=== PATIENT | female | born 1970 | race Caucasian/White ===

== ENCOUNTER 2023-07-24 14:59 | Outpatient (AMB) | payer BC, SELFPAY ==
--- NOTE | 2023-07-24 15:39 | AM.OFFWIN_ITS ---
Intake Vital Signs 07/24/23 15:50 Height 5 ft 2 in Weight 162 lb 0.8 oz BMI 29.6 BP 118/70 Blood Pressure Location Lt brachial Position Sitting Pulse 75 Pulse Source Pulse Oximeter Temp 97.8 F Temp Source Temporal Artery Scan Pulse Oximetry (%) 96 Oxygen Delivery Method Room Air Intake Visit Reasons: EP congestion cough [id number] Intake Note: Pt is here c/o on going and congestion for five days. Patient Tobacco Use Status: Never used Tobacco Allergies amoxicillin Adverse Reaction (Intermediate, Verified 07/24/23 16:05) Rash Penicillins Adverse Reaction (Intermediate, Verified 07/24/23 16:05) rash Sulfa (Sulfonamide Antibiotics) Adverse Reaction (Intermediate, Verified 07/24/23 16:05) Rash Medication List - Last Reconciled 07/24/23 by Buzz Kc MD No Known Home Meds Do you need a note to return to daycare/school/sports/work: No HPI EP congestion cough [id number] HPI Details 52-year-old female presents to the [facility] for a sick visit. Reporting symptoms of sinus congestion, sore throat and difficulty swallowing. Low-grade fever. No family member is sick. No recent travel. Patient reports symptoms of malaise and fatigue. PFS Social History Patient Tobacco Use Status: Never used Tobacco Physical Exam Vital Signs: Last Vital Signs Temp 97.8 F 07/24/23 15:50 Pulse 75 07/24/23 15:50 BP 118/70 07/24/23 15:50 Pulse Ox 96 07/24/23 15:50 Oxygen Delivery Method Room Air 07/24/23 15:50 BMI result Body Mass Index 29.6 Const General: cooperative and healthy appearing Nutritional Appearance: well nourished Orientation/consciousness: patient oriented x3 Limitations: no limitations HEENT Head: Yes normal to inspection Eyes General: appearance normal, both eyes and all related structures Neck Neck: Yes normal visual inspection Chest Chest palpation & inspection: normal palpation of entire chest wall Resp Effort & Inspection: normal respiratory effort Neuro General: patient oriented x3 Assessment & Plan Assessment & Plan (1) Upper respiratory tract infection: Code(s): J06.9 - Acute upper respiratory infection, unspecified Plan: Antibiotics ordered. Increase fluid intake. Tylenol for aches and pains. If symptoms worsen, follow-up here for a recheck. Coding Level of Care Code Est Pt Level 3 (04464) Diagnoses Upper respiratory tract infection J06.9
[2023-07-24 15:50] VITALS: BP 118/70; PULSE 75; TEMP 36.6; O2SAT 96; BMI 29.6
== END 2023-07-24 16:54 | disposition home or self-care (01) ==
PROVIDERS: PCP Internal Medicine; Visit Provider Internal Medicine
DX: J06.9 Acute upper respiratory infection, unspecified (principal)
CPT/HCPCS: 99213

== ENCOUNTER 2024-09-27 12:02 | Outpatient (AMB) | payer BC, SELFPAY ==
--- NOTE | 2024-09-27 12:29 | MHC.OFFWIV ---
Intake Vital Signs 09/27/24 12:33 Height 5 ft 2 in Weight 160 lb BMI 29.3 BP 118/82 Blood Pressure Location Lt brachial Position Sitting Respiration 18 Pulse 76 Pulse Source Pulse Oximeter Temp 98.3 F Temp Source Oral Pulse Oximetry (%) 97 Oxygen Delivery Method Room Air Intake Visit Reasons: EP Chronic cough and [id number] Intake Note: Pt is here today for a walk in visit. Pt states that she went to Urgent Care for cough and was given antibiotic and inhaler. Pt states that she has been coughing for 5 weeks now and its not going away. Patient Tobacco Use Status: Never used Tobacco Allergies amoxicillin Adverse Reaction (Intermediate, Verified 09/27/24 12:35) Rash Penicillins Adverse Reaction (Intermediate, Verified 09/27/24 12:35) rash Sulfa (Sulfonamide Antibiotics) Adverse Reaction (Intermediate, Verified 09/27/24 12:35) Rash HPI EP Chronic cough and [id number] HPI Details Patient is a 53-year-old female with no underlying medical issues reported, including no immunosuppression issues, who comes to the walk-in clinic with complaint of 5 weeks of persistent cough. She reports that she was having a congestive cough mostly when she came to the walk-in about a week ago, and was put on a antibiotic and given albuterol inhaler for possible lower respiratory infection. She reports that the inhaler does not help much for the reactive cough, which sometimes turns into fits and causes shortness of breath, especially when lying supine. She no longer has the mucus production, and she attributes this to the antibiotic course which she completed. She denies fever, but does get chills at night. No chest pain, nausea vomiting or diarrhea, myalgias or malaise, syncope, palpitations, weakness or dizziness, sore throat, or other significant associated symptoms reported. [facility] Social History Patient Tobacco Use Status: Never used Tobacco Physical Exam Vital Signs: Last Vital Signs Temp 98.3 F 09/27/24 12:33 Pulse 76 09/27/24 12:33 Resp 18 09/27/24 12:33 BP 118/82 09/27/24 12:33 Pulse Ox 97 09/27/24 12:33 Oxygen Delivery Method Room Air 09/27/24 12:33 BMI result Body Mass Index 29.3 Const General: cooperative, healthy appearing, comfortable, no acute distress, alert, awake, Physically active and well groomed; No anxious, diaphoretic, ill appearing, intoxicated appearing, poor hygiene or tired appearing Nutritional Appearance: average body habitus Orientation/consciousness: oriented to person Limitations: no limitations Eyes General: appearance normal, both eyes and all related structures Neck Neck: Yes normal visual inspection, Yes no lymphadenopathy, Yes trachea midline, Yes supple and No anterior neck swelling Chest Chest palpation & inspection: normal palpation of entire chest wall Resp Effort & Inspection: normal respiratory effort, able to speak in complete sentences, no audible wheezes, Actively coughing (Rare dry cough), no grunting, not labored, no nasal flaring, no retractions and symmetric chest movement Auscultation: clear to auscultation bilaterally, no crackles, no rales, no rhonchi, no wheezes, lung sounds not diminished and No rub present Cardio Palpation: normal PMI Rate: regular rate Rhythm: regular rhythm Heart sounds: S1 normal heart sound present and S2 normal heart sound present Skin Other: Good color, warm and dry Neuro General: oriented to person Psych Appearance: grossly normal Mental Status: mental status grossly normal Speech and movement: Normal speech and movement present Affect: normal affect Attitude: cooperative Thought process: Normal thought process present Insight: Good insight present (Psych) Judgement: Good judgement present (Psych) Results Reviewed Results Reviewed: Some atelectasis and congestion noted, but no consolidation or obvious pneumonia visualized on two-view chest x-ray done today. Pending radiologist read. Assessment & Plan Assessment & Plan (1) Cough in adult: Code(s): R05.9 - Cough, unspecified Plan: Patient is a 53-year-old female with complaint of 5 weeks of persistent cough. She reports that she was having a congestive cough mostly when she came to the walk-in about a week ago, and was put on a antibiotic and given albuterol inhaler. She reports that the inhaler does not help much for the reactive cough, which sometimes turns into fits and causes shortness of breath, especially when lying supine. She no longer has the mucus production. She denies fever, but does get chills at night. No chest pain, nausea vomiting or diarrhea, myalgias or malaise, syncope, palpitations, weakness or dizziness, sore throat, or other significant associated symptoms reported. It seems like she had acute bronchitis, likely from respiratory virus, and this has cleared up for her however she still has a reactive cough, likely from inflammation in the bronchi. I wrote her for tapered course of prednisone, moderate dose to start, she has not taken. She can also do Tessalon Perles as needed for the cough. Two-view chest x-ray today does not show an obvious consolidation suggestive of pneumonia. She knows to follow up if symptoms persist or worsen, and to go to the emergency department with with worrisome symptoms. Orders: Orders XR chest 2V Today R05.3 - Chronic cough Medications: New prednisone then take 3 tabs for 3 days, then 2 tabs for 3 days, then 1 tab for 3 days. 40 mg (4 x 10 mg) PO DAILY 3 days 30 tabs 0RF benzonatate 200 mg PO BID-TID PRN 20 caps 0RF cough Coding Level of Care Code Est Pt Level 4 (13085) Diagnoses Cough in adult R05.9
[2024-09-27 12:33] VITALS: BP 118/82; PULSE 76; RESP 18; TEMP 36.8; O2SAT 97; BMI 29.3
--- OUTSIDE RECORDS SUMMARY | 2024-09-27 14:01 | XMS_ITS | Data Portability ---
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 Patient reports initiating a training program in June, completing several races including a [employer] Race and a 5K, and was training for the [employer] when symptoms developed. She reports being an experienced runner with history of completing 5 marathons and multiple half marathons without previous knee issues. Pain is localized to the medial aspect of the right knee. After initial onset, patient took a month off from running and participated in mobility and stretching exercises for 6 weeks. Upon attempting to return to running, pain persisted. She subsequently completed one month of physical therapy with minimal improvement despite activity modification. Patient has tried ibuprofen, rest, activity modification and physical therapy. I independently reviewed outside x-rays of the right knee dated December 2023 from [facility]. No acute fractures or dislocations. Normal medial, lateral patellofemoral joint space. Normal patellar height. She has no significant past medical history. She takes ibuprofen as needed. She has an allergy to penicillin, amoxicillin and sulfa medications. 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 No personal or family history blood clots. Past medical, surgical, family and social history; Medications, Allergies and 12-point review of systems have been reviewed, updated and charted. Physical Examination: Height and weight as listed in chart. Constitutional: Patient pleasant, well appearing and in NAD. Mental status: Patient is alert and oriented to person, place and time. No short-term memory deficits. Psychiatric: Mood and affect are appropriate. Head: Normocephalic and atraumatic. Exterior inspection of the ears and nose was unremarkable. Hearing grossly intact. Eyes: Sclera are not blue. body recall instructor II-XII are grossly intact. Full extraocular motion. Neck: Supple with age-appropriate ROM. No tracheal deviation. No obvious JVD. Respiratory: Non-labored breathing. Symmetric excursion. No audible wheezing or crackles. Peripheral Vascular: No peripheral edema. Distal pulses intact. Neurological: Peripheral motor and sensory exam normal and equal bilaterally. Skin: No rashes, lesions, wounds to the lower extremities. Normal turgor and coloration. Musculoskeletal: On examination of the right knee, there is no effusion, erythema or ecchymosis. Range of motion from 0-135? ? ?. Her knee is stable to varus and valgus stress as well as Gume and posterior drawer. She has discomfort with deep knee flexion. Tenderness to palpation along the medial joint line. Pain along the medial joint line with Chayo's maneuver. Extensor mechanism intact. No patellar instability or groin. Diagnostic Imaging: X-rays ordered, obtained and reviewed at [facility]. These images included weightbearing Santos view of both knees. No acute fractures or dislocations. Normal medial and lateral compartment joint space. Normal patellar height. 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 I discussed etiology of the patient's symptoms with her at length today. Given the chronicity of her symptoms and failure of conservative treatment, I do agree with getting an MRI of the right knee to evaluate for medial meniscus tear and associated pathology. She does already have an MRI pending, which was ordered by her PCP. I will plan to see her back in 2-3 weeks for reevaluation and MRI review. I did provide a referral for a Genutrain knee sleeve to provide compressive support to her knee and assist with activities of daily living. She may continue taking oral inflammatories as needed. All her questions and concerns were addressed. Today's visit involved examining the patient, reviewing the history, reviewing the radiographic studies, counseling the patient regarding treatment options, and the administrative tasks including placing orders, preparing patient information and home handouts and preparing the visit note. This note was generated with [facility] speech recognition city maintenance manager dictation software. Please excuse any errors that may have been overlooked during review of this note. Sometimes, these errors may affect the content or meaning of a given sentence. Please call for corrections. 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 Patient reports initiating a training program in June, completing several races including a [employer] Race and a 5K, and was training for the [employer] when symptoms developed. She reports being an experienced runner with history of completing 5 marathons and multiple half marathons without previous knee issues. Pain is localized to the medial aspect of the right knee. After initial onset, patient took a month off from running and participated in mobility and stretching exercises for 6 weeks. Upon attempting to return to running, pain persisted. She subsequently completed one month of physical therapy with minimal improvement despite activity modification. Patient has tried ibuprofen, rest, activity modification and physical therapy. I first evaluated her on 05/11/2024. Her history and exam are very consistent with a right knee medial meniscus tear and she was referred her for an MRI. She comes back today for reevaluation, MRI review and discussion of treatment options. I independently reviewed the MRI of the right knee dated 05/27/2024 from [facility]. There is a complex tear of the posterior horn medial meniscus. Mild to moderate chondral thinning to the mid weightbearing portion of the medial compartment. Superficial and deep fissuring of the lateral patellar facet also noted. Lateral meniscus intact. Cartilage of the lateral compartment intact. ACL and PCL intact. Collateral ligaments intact. Extensor mechanism intact. I reviewed previous X-rays ordered, obtained and reviewed at [facility] from April 2024. These images included weightbearing Santos view of both knees. No acute fractures or dislocations. Normal medial and lateral compartment joint space. Normal patellar height. I independently reviewed outside x-rays of the right knee dated December 2023 from [facility]. No acute fractures or dislocations. Normal medial, lateral patellofemoral joint space. Normal patellar height. She has no significant past medical history. She takes ibuprofen as needed. She has an allergy to penicillin, amoxicillin and sulfa medications. 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 No personal or family history blood clots. Past medical, surgical, family and social history; Medications, Allergies and 12-point review of systems have been reviewed, updated and charted. Physical Examination: Height and weight as listed in chart. Constitutional: Patient pleasant, well appearing and in NAD. Mental status: Patient is alert and oriented to person, place and time. No short-term memory deficits. Psychiatric: Mood and affect are appropriate. Head: Normocephalic and atraumatic. Exterior inspection of the ears and nose was unremarkable. Hearing grossly intact. Eyes: Sclera are not blue. body recall instructor II-XII are grossly intact. Full extraocular motion. Neck: Supple with age-appropriate ROM. No tracheal deviation. No obvious JVD. Respiratory: Non-labored breathing. Symmetric excursion. No audible wheezing or crackles on auscultation. Cardiovascular: Regular rate and rhythm and normal S1 and S2. Skin: No rashes, lesions, wounds to the lower extremities. Normal turgor and coloration. Musculoskeletal: On examination of the right knee, there is no effusion, erythema or ecchymosis. Range of motion from 0-135? ? ?. Her knee is stable to varus and valgus stress as well as Gume and posterior drawer. She has discomfort with deep knee flexion. Tenderness to palpation along the medial joint line. Pain along the medial joint line with Chayo's maneuver. Extensor mechanism intact. No patellar instability or groin. 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 I discussed etiology of the patient's symptoms with her at length today. I discussed options with her today both operative and nonoperative. At this point, she has failed conservative treatment including rest, activity modification, oral anti-inflammatori es and physical therapy. Therefore, I recommend moving forward with right knee diagnostic and operative arthroscopy with partial medial meniscectomy and chondroplasty/kate ridement. Anticipated recovery after surgery is approximately 6 weeks. I will allow the patient to weight-bear as tolerated. I recommend the patient begin physical therapy within 2 days of surgery to prevent knee stiffness. The patient does wish to proceed. Preoperative history and physical completed. All questions and concerns addressed. 1. A detailed discussion regarding the patient? s pathoanatomy and treatment options, both operative and non-operative, was conducted today. 2. Given that conservative measures have failed, I recommended right knee diagnostic and operative arthroscopy with partial medial meniscectomy and chondroplasty/kate ridement. 2. The mechanics of the major surgery were reviewed with explanation, diagram, and review of imaging. 3. I told the patient that the goal of surgery was to improve their overall function and symptoms, but that surgery may not relieve all symptoms. I advised the patient that symptom resolution after this procedure may be protracted and incomplete.? ? ? I explained that, as a result, permanent functional limitations may be recommended. 4. An appropriate timeline of recovery was outlined, and appropriate expectations were reviewed. 5. The risks and benefits of surgery, and the nonoperative alternatives, were discussed at length. Risks include, but are not limited to infection, bleeding, damage to nerves, blood vessels, muscle, tendon, bone; need for further surgery, wound healing problems, hardware related problems, non-relief of symptoms, recurrence of pathology, reinjury, chronic pain, chronic numbness, chronic weakness, loss of function, compartment syndrome, fracture, complex regional pain syndrome, joint stiffness, adhesions/scarrin g, arthritis or progression of arthritis, complications of anesthesia, and blood clots. 6. The patient has been educated in clear, simple language and on their own level of understanding the risks and benefits of all viable treatment options, including those of no treatment. All questions have been answered to their satisfaction. The patient has made an informed decision to proceed with surgery. 7. The patient was offered a second opinion regarding diagnosis and management of their condition and they respectfully declined. The patient was referred for a semi-rigid/rigid orthosis. The patient has weakness and instability of their extremity which requires stabilization for this semi-rigid/rigid orthosis to improve their function. Verbal and written instructions for the use and application of this item were given. Patient was instructed that should the brace result in increased pain, decreased sensation, increased swelling or an overall worsening of their medical condition, to please contact our office immediately. Today's visit involved examining the patient, reviewing the history, reviewing the radiographic studies, counseling the patient regarding treatment options, and the administrative tasks including placing orders, preparing patient information and home handouts and preparing the visit note. This note was generated with [facility] speech recognition city maintenance manager dictation software. Please excuse any errors that may have been overlooked during review of this note. Sometimes, these errors may affect the content or meaning of a given sentence. Please call for corrections. [email or web address] Not available 06/07/2024 14:14:12 Plan of Treatment Reminders Order Date Submit Date Provider Last Modified By Organization Details Last Modified Time Details Appointments None recorded. Lab None recorded. Referral physical therapist referral - PHYSICAL THERAPY REFERRAL ICD-10: M24.661(rig ht) 1. Follow post-operat saulo protocol.2. Soft tissue modalities as indicated3. Home exercise program.All ow 2-3 visits a week for 6 weeks with home exercise program.Com pleted by: 2023 024 [email or web address] Not available 4 12:10:36 Procedures None recorded. Surgeries None recorded. Imaging XR, knee, 1 or 2 view - rm 217 rt knee santos only 2023 024 [email or web address] 4 [facility], [address], [place], [address], 4 10:56:16 Medication Orders None recorded. Patient TargetsNo targets recorded. Patient InstructionsNo instructions recorded. Reason for Referral Physical Therapist Referral for Tear of medial meniscus of knee PHYSICAL THERAPY REFERRAL ICD-10: M24.661(right) 1. Follow post-operative protocol.2. Soft tissue modalities as indicated3. Home exercise program.Allow 2-3 visits a week for 6 weeks with home exercise program.Completed by: Referring Physician: Aakash Raphael, Orthopedic Surgery, Encounter Date: 06/07/2024 Results Created Date Observation Date Name Description Value Unit Range Abnormal Flag Note LastModifiedBy Organization Detail LastModifiedTime 05/21/20 24 05/21/2024 XR, knee, 1 or 2 view [email or web address] ?Encry pted=s hAaTro YD8dLq bEUv6g %2BXZw aYqtaq 0bqfl% 2Fg9IQ a4ajBk vP9nXo QUaueC m3YtLR FvZlgJ JJ8mAn HZtai3 6b5915 AC0Kqa XmCVKW hKiQtr MwF INTERFACE [facility] [address], [place], [address], 05/21/2024 09:50:12 05/21/20 24 05/21/2024 XR, knee, 1 or 2 view [email or web address] ?Encry pted=s hAaTro YD8dLq bEUv6g %2BXZw aYqtaq 0bqfl% 2Fg9IQ a4ajBk vP9nXo QUaueC m3YtLR FvZlgJ JJ8mAn HZtai3 6z0982 AC0Kqa XmCVKW hKiQtr MwF INTERFACE [facility] [address], [place], [address], 05/21/2024 09:50:14 06/10/20 24 05/27/2024 MRI, knee, w/o contr ast No observ ation record ed. BARCODE Not Available 2023 09:07:34 Result Notes None recorded. Procedures Surgical History None recorded. Imaging Results Imaging Date Name Status LastModified by Organiz ation Details LastModified Time 05/21/2024 XR, knee, 1 or 2 view completed INTERFACE [facility] [email or web address], [place], [address], 05/21/2024 09:50:12 05/21/2024 XR, knee, 1 or 2 view completed INTERFACE [facility] [email or web address], [place], [address], 05/21/2024 09:50:14 05/27/2024 MRI, knee, w/o contrast completed BARCODE Information not available 06/10/2024 09:07:34 Procedure Notes None recorded. Medical Equipment None Reported. Allergies Allergen ID Allergen Name Allergen Category Reaction Reaction Severity Criticality Documentation Date Start Date Code Code System Note Provider Name and Address Organization Details Recorded Time 572628 Product containin g penicilli n (product) medicatio n Not available Not available Not available 05/21/2024 13259 8001 SNOMED SIENNA SOTO [facility] 4 09:34:01 065810 amoxicill in medicatio n Not available Not available Not available 05/21/2024 723 RxNorm SIENNA SOTO [facility] 4 09:34:07 157406 Substance with sulfonami de structure and antibacte rial mechanism of action (substanc e) medicatio n Not available Not available Not available 05/21/2024 59400 8003 SNOMED SIENNA SOTO [facility] 4 09:34:13 Medications Name Sig Start Date Stop Date Status Note LastModified by Organization Details LastModified Time azithromyci n 250 mg tablet 08/06 completed Not Available Not Available Not Available meloxicam 15 mg tablet TAKE 1 TABLET BY MOUTH EVERY DAY active Not Available Not Available No t Available ondansetron HCl 4 mg tablet TAKE 1 TABLET BY MOUTH EVERY 6 TO 8 HOURS NEEDED FOR NAUSEA 08/06 completed Not Available Not Available Not Available aspirin 325 mg tablet,raul yed release TAKE 1 TABLET BY MOUTH EVERY DAY BEGINNING THE DAY AFTER SURGERY active Not Available Not Available No t Available naproxen 500 mg tablet TAKE 1 TABLET BY MOUTH TWICE DAILY WITH FOOD FOR 5 DAYS 08/06 completed Not Available Not Available Not Available oxycodone 5 mg tablet TAKE 1 TABLET BY MOUTH EVERY 4 TO 6 HOURS NEEDED FOR MODERATE TO SEVERE PAIN active Not Available Not Available No t Available Vitals Date Recorded Body height Body mass index (BMI) Body weight Provider Name and Address Organization Details Last Updated DateTime 05/21/2024 157.48 cm 28.3 kg/m2 08028.82 maeve SOTO [facility] 05/21/2024 09:33:42 Date Recorded Body height Body mass index (BMI) Body weight Heart rate Body temperature Oxygen saturation Oxygen saturation in Arterial blood by Pulse oximetry Respiratory rate Systolic blood pressure Diastolic blood pressure Provider Name and Address Organization Details Last Updated DateTime 157.48 cm 28.3 kg/m2 42053.8 2 g 78 /min 97.9 [degF] 98 % 98 % 18 /min 118 mm[Hg] 70 mm[Hg] SIENNA SOTO [facility] 11:35:23 Date Recorded Body height Body mass index (BMI) Body weight Provider Name and Address Organization Details Last Updated DateTime 08/06/2024 157.48 cm 28.3 kg/m2 88641.82 g jazmyn beauchamp [facility] 08/06/2024 10:52:10 Social History None recorded. Functional Status None recorded. Mental Status None recorded. Family History Nothing Reported. Medical History No medical history recorded. Gynecological HistoryNo gynecological history recorded. Obstetrics History GPAL:G 0 P 0 0 0 0 Past Encounters Encounter ID Performer Location Encounter Start Date Encounter Closed Date Diagnosis/Indication Diagnosis SNOMED-CT Code Diagnosis ICD10 Code Diagnosis Note [id number] Aakash Raphael MD [facility] 2nd floor [address] [facility] [place] [address] 05/21/2024 09:04:13 06/18/2024 10:21:57 Pain of right knee joint 1082914984 10404 M25.561 Strain of knee 724757527 1 03 S86.911A [id number] MD [facility] [address] [place] [address] 06/07/2024 10:22:17 07/01/2024 14:47:49 Tear of medial meniscus of knee 634531562 S83.241D Chondromal acia of right patella 8780924707 5951201 M22.41 [id number] LIBAN Bassett - [facility] [address] [place] [address] 08/06/2024 10:40:36 08/20/2024 13:45:59 Postoperative visit 235873074 Z48.89 Acute meni scal tear, medial 961362560 S83.231D Osteoarthr itis of right knee joint 2512518246 83497 M17.11 Health Concerns Section Related Observation LastModified by Organization Detai ls LastModified Time None Recorded Concern Status LastModified by Organization Details LastModified Time None Recorded Advance Directives Directive None Recorded Payers Encounter Date Sequence Insurance Name Policy Number Policy [employer] Covered Member ID [employer] Member ID Guarantor Name 05/21/2024 1 [place] [employer] [place] [employer] [place] Yoana Ranjana [id number] [place] Ranjana 06/07/2024 1 [place] [employer] [place] [place] Yoana Ranjana [id number] [employer]l 08/06/2024 1 [place] [employer] [place] [place] Yoana Ranjana [id number] [employer] Notes Date Note Type Note Provider Name and Address Organization Details Recorded Time 08/06/2024 text/html I am seeing the patient today under the supervision of Dr. Payan who was available but who did not see the patient. HPI: Patient presents to the office today approximately 2 weeks status post {{right* left}} knee arthroscopy with partial {{medial* lateral med ial and lateral}} meniscectomy and chondroplasty. Pain has been controlled. Denies any issues with the incision sites. No calf pain, neurovascular changes, or systemic complaints. PMH/PSH/MEDS/ALL/FMH/ SOC HX/ROS are reviewed in detail per my medical intake sheet. General Exam: Vital signs are as noted below Mental status: Alert and lucid. Normal insight, affect and grooming. 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 No spasticity or clonus noted. EXAMINATION: The patient is well appearing and in no apparent distress. Alert and oriented x3. Gait is mildly antalgic. {{Right* Left}} knee reveals well-healing surgical scars and expected postoperative edema. No erythema, ecchymosis, or drainage. Neurovascularly intact. No significant joint line tenderness. ROM is from 0-125 degrees. Stability intact with anterior, posterior, and varus/valgus stress at both 0 and 30 degrees of flexion. 5/5 strength. Calf/leg compartments soft and compressible. Intraoperative photos have been reviewed. IMPRESSION: 2 weeks status post {{right* left}} knee arthroscopy with partial {{medial* lateral med ial and lateral}} meniscectomy and chondroplasty PLAN: Intraoperative findings have been reviewed with the patient. The patient is recovering well from surgery. Pain has been controlled. We reviewed the signs/symptoms of infection. May slowly increase activity level as tolerated. Advised against high impact activities for the first six weeks post-op. All questions have been answered. Laura De La Vega PA-C [address] [facility], [place], [address], [facility] 08/06/2024 14:59:39 OBGyn Episode No OBEpisode recorded.
== END 2024-09-27 14:48 | disposition home or self-care (01) ==
PROVIDERS: PCP Internal Medicine; Visit Provider Physician Assistant Medical
DX: R05.9 Cough, unspecified (principal)

== ENCOUNTER 2024-09-27 12:02 | Outpatient (REF) | payer BC, SELFPAY ==
--- NOTE | ~2024-09-27 | XR_ITS ---
EXAMINATION: XR CHEST 2 VIEWS HISTORY: R05.3 - Chronic cough COMPARISON: There are no prior studies for comparison. FINDINGS: PA and lateral views of the chest are submitted. The lungs are expanded and clear. There is no pleural effusion, pneumothorax, or pulmonary vascular congestion. The heart is normal in size. The bones are intact. XR/XR chest 2V IMPRESSION: Normal examination of the chest. Electronically signed by: Omid Rothman MD 09/27/2024 01:39 PM EDT
--- OUTSIDE RECORDS SUMMARY | 2024-09-27 15:09 | XMS_ITS | Data Portability ---
Author Organization [facility], Main Office Address [address] [facility] [address] [place] [address] Care Team Providers Care Rn Child Name Role Phone [facility] Mental Health Practitioner [phone] MALINA KUMAR Primary Care Provider JONATHON GUTHRIE [facility] Carpet Installer Helper Assessment Encounter Date Assessment Date Assessment LastModified by Organization Details LastModified Time 12/22/2023 12/22/2023 Discussed with patient the signs/symptom s warranted for a return to office visit and/or an ER visit. Patient understood and agreed with the plan. [email or web address] Not available 12/22/2023 11:08:45 Plan of Treatment Reminders Order Date Submit Date Provider Last Modified By Organization Details Last Modified Time Details Appointments None record ed. Lab lipid panel, serum or plasma 2023 RITO [facility] (Centralized Electronic Ordering - All Locations), Patient Can Go To The Location Of Their Choice, 10:50:40 CMP, serum or plasma 2023 024 [email or web address] [facility] (Centralized Electronic Ordering - All Locations), Patient Can Go To The Location Of Their Choice, 11:14:44 CBC w/ auto diff 2023 RITO [facility] (Centralized Electronic Ordering - All Locations), Patient Can Go To The Location Of Their Choice, 10:50:40 vitami n D, 25-hyd gomez, total, serum 2023 024 RITO [facility] (Centralized Electronic Ordering - All Locations), Patient Can Go To The Location Of Their Choice, [id number] 4 10:50:44 TSH, serum or plasma 2022 023 RITO [facility] (Centralized Electronic Ordering - All Locations), Patient Can Go To The Location Of Their Choice, [id number] 3 16:23:51 lipid panel, serum 2022 023 RITO [facility] (Centralized Electronic Ordering - All Locations), Patient Can Go To The Location Of Their Choice, [id number] 3 16:20:15 CMP, serum or plasma 2022 023 RITO [facility] (Centralized Electronic Ordering - All Locations), Patient Can Go To The Location Of Their Choice, [id number] 3 16:20:13 CBC w/ auto diff 2022 023 [email or web address] [facility] (Centralized Electronic Ordering - All Locations), Patient Can Go To The Location Of Their Choice, [id number] 4 16:15:31 Referral gyneco logist referr al 2023 024 [email or web address] Not available 4 11:03:42 nutrit ionist /dieti rocael referr al 2023 024 [email or web address] Not available 4 11:03:42 orthop edic surgeo n referr virginie - R. knee injury . 2023 024 thony [facility], [address], [place], [address], 4 10:02:29 physic al therap ist referr al - right knee pain-p t is an avid runner , has knee pain w ambula tion/w eight bearin g on latera l and medial aspect s; possib le IT band strain 2023 024 thony [facility] [address] [facility] [address], [place], [address], 4 13:02:44 gyneco logist referr al 2022 023 [email or web address] Not available 4 17:17:02 pulmon ologis t referr al - EXerci se intole mary with dyspne a. Chest xray and labs normal . 2022 023 thony [facility], [address] [place] [address], [address], 3 16:41:20 Procedures None record ed. Surgeries None record ed. Imaging MAMMO, screen ing, bilate ral 2023 024 [facility] (Ultrasound), [address] [place], [address], 5 09:53:56 MRI, knee, w/o contra st - Knee injury 5-6 months ago with persis tent medial knee pain. R/o menisc al tear. 2023 024 [facility] (Radiology), [address] [place], [address], 4 11:46:23 XR, knee, 3 view - right knee pain 2023 024 [email or web address] [facility], [address] [place] [address], [address], 4 20:00:13 exerci se stress test - Abnorm al EKG, shortn ess of breath with exerti on 2022 023 [email or web address] [facility], [address] [place] [address], [address], 3 14:48:09 electr ocardi ogram 2022 023 [email or web address] In-Office Order, Internal Use Only DO Not Attach Compendium DO Not Attach Compendium, Do Not Delete/merge, [id number] 10:05:55 XR, chest, 2 view - Dyspne a with exerti on 2022 023 [facility] (Ultrasound), [address], [place], [address], 10:42:05 Medication Orders None record ed. Patient TargetsNo targets recorded. Patient Instructions Encounter Date Encounter Id Patient Instructions Last Modified By Organization Details Last Modified Time 12/21/2022 [id number] hot flashes duri ng menopause: care instructions Not available 12/21/2022 09:42:47 heart-healthy diet: care instructions Not available 12/21/2022 09:42:47 high cholesterol : care instructions Not available 12/21/2022 09:42:47 mediterranean diet Not availab le 12/21/2022 09:42:47 When You Want to Lose Weight: Care Instructions Not available 12/21/2022 09:50:32 complete PFT w/ post bronchodilator spirometry* - exertional dyspnea, nonsmoker, r/o COPD. Not available 01/13/2023 11:18:51 06/05/2024 [id number] irritable bowel syndrome: care instructions Not available 06/05/2024 10:42:09 allergies: care instructions Not available 06/05/2024 10:42:08 high cholesterol : care instructions Not available 06/05/2024 10:42:09 learning about breast cancer screening Not available 06/05/2024 10:42:08 When You Want to Lose Weight: Care Instructions Not available 06/05/2024 10:40:37 Reason for Referral Land Economist Referral for Sc reening for malignant neoplasm of cervix Referring Physician: Malina Kumar, Internal Medicine, Encounter Date: 12/21/2022 Hatchery Helper Referral for D yspnea EXercise intolerance with dyspnea. Chest xray and labs normal. Referring Physician: Malina Kumar, Internal Medicine, Encounter Date: 12/21/2022 Physical Therapist Referral for Pain of right knee region right knee pain-pt is an avid runner, has knee pain w ambulation/weight bearing on lateral and medial aspects; possible IT band strain Referring Physician: Mary Fang, Family Medicine, Encounter Date: 12/22/2023 Orthopedic Surgeon Referral for Pain of right knee region R. knee injury. Referring Physician: Malina Kumar, Internal Medicine, Encounter Date: 04/30/2024 Mounter [employer]col[employer]/dietitian Refer ral for Body mass index 25-29 - overweight Referring Physician: Malina Kumar, Internal Medicine, Encounter Date: 06/05/2024 Land Economist Referral for Sc reening for malignant neoplasm of cervix Referring Physician: Malina Kumar, Internal Medicine, Encounter Date: 06/05/2024 Results Created Date Observation Date Name Description Value Unit Range Abnormal Flag Note LastModifiedBy Organization Detail LastModifiedTime 12/08/1912/07/2022 COMPR EHENS CORTES METAB OLIC PANL glucose 89 mg/dL (70-99 ) Not Available [facility] (Centralized Electronic Ordering - All Locations) Patient Can Go To The Location Of Their Choice, 12/07/2022 16:20:13 12/08/1912/07/2022 COMPR EHENS CORTES METAB OLIC PANL BUN 14 mg/dL (6-20) Not Available [facility] (Centralized Electronic Ordering - All Locations) Patient Can Go To The Location Of Their Choice, 12/07/2022 16:20:13 12/08/1912/07/2022 COMPR EHENS CORTES METAB OLIC PANL creatinine 0.8 mg/dL (0.5-1 .0) Not Available [facility] (Centralized Electronic Ordering - All Locations) Patient Can Go To The Location Of Their Choice, 12/07/2022 16:20:13 12/08/1912/07/2022 COMPR EHENS CORTES METAB OLIC PANL sodium 135 mmol/ L (133-1 45) Not Available [facility] (Centralized Electronic Ordering - All Locations) Patient Can Go To The Location Of Their Choice, 12/07/2022 16:20:12/08/1912/07/2022 COMPR EHENS CORTES METAB OLIC PANL potassium 4.2 mmol/ L (3.6-5 .2) Not Available [facility] (Centralized Electronic Ordering - All Locations) Patient Can Go To The Location Of Their Choice, 12/07/2022 16:20:12/08/19 23 12/07/2022 COMPR EHENS CORTES METAB OLIC PANL chloride 98 mmol/ L (98-10 7) Not Available [facility] (Centralized Electronic Ordering - All Locations) Patient Can Go To The Location Of Their Choice, 12/07/2022 16:20:12/08/1912/07/2022 COMPR EHENS CORTES METAB OLIC PANL bicarbonate 24 mmol/ L (22-29 ) Not Available [facility] (Centralized Electronic Ordering - All Locations) Patient Can Go To The Location Of Their Choice, 12/07/2022 16:20:12/08/1912/07/2022 COMPR EHENS CORTES METAB OLIC PANL anion gap 13 (4-17) Not Available [facility] (Centralized Electronic Ordering - All Locations) Patient Can Go To The Location Of Their Choice, 12/07/2022 16:20:12/08/1912/07/2022 COMPR EHENS CORTES METAB OLIC PANL albumin 4.7 gm/dL (3.4-4 .8) Not Available [facility] (Centralized Electronic Ordering - All Locations) Patient Can Go To The Location Of Their Choice, 12/07/2022 16:20:12/08/1912/07/2022 COMPR EHENS CORTES METAB OLIC PANL calcium 10.2 mg/dL (8.6-1 0.5) Not Available [facility] (Centralized Electronic Ordering - All Locations) Patient Can Go To The Location Of Their Choice, 12/07/2022 16:20:12/08/1912/07/2022 COMPR EHENS CORTES METAB OLIC PANL bilirubin,to efren 0.4 mg/dL (0-1.2 ) Not Available [facility] (Centralized Electronic Ordering - All Locations) Patient Can Go To The Location Of Their Choice, 12/07/2022 16:20:13 12/08/19 23 12/07/2022 COMPR EHENS CORTES METAB OLIC PANL total protein 7.6 gm/dL (6.2-8 .2) Not Available [facility] (Centralized Electronic Ordering - All Locations) Patient Can Go To The Location Of Their Choice, 12/07/2022 16:20:13 12/08/19 23 12/07/2022 COMPR EHENS CORTES METAB OLIC PANL Ag ratio 1.6 Not Available [facility] (Centralized Electronic Ordering - All Locations) Patient Can Go To The Location Of Their Choice, 12/07/2022 16:20:13 12/08/19 23 12/07/2022 COMPR EHENS CORTES METAB OLIC PANL AST 26 U/L (0-32) Not Available [facility] (Centralized Electronic Ordering - All Locations) Patient Can Go To The Location Of Their Choice, 12/07/2022 16:20:13 12/08/19 23 12/07/2022 COMPR EHENS CORTES METAB OLIC PANL alk phos 102 U/L (35-10 4) Not Available [facility] (Centralized Electronic Ordering - All Locations) Patient Can Go To The Location Of Their Choice, 12/07/2022 16:20:13 12/08/19 23 12/07/2022 COMPR EHENS CORTES METAB OLIC PANL ALT 17 U/L (0-33) Not Available [facility] (Centralized Electronic Ordering - All Locations) Patient Can Go To The Location Of Their Choice, 12/07/2022 16:20:13 12/08/19 23 12/07/2022 COMPR EHENS CORTES METAB OLIC PANL estimated GFR creatinine 85 mL/mi n/1.7 3_M2 Creat inine based estim ated glome rular filtr ation (eGFR ) in adult s is calcu lated using the Natio nal Kidne y Found ation recom nick d 2020 CKD-E PI equat ion. Estim ates GFR from serum creat inine , age and sex. Not Available [facility] (Centralized Electronic Ordering - All Locations) Patient Can Go To The Location Of Their Choice, 12/07/2022 16:20:13 12/08/1912/07/2022 LIPID PANEL cholesterol, total 284 mg/dL (<200) high Not Available [facility] (Central[facility] Ordering - All Locations) Patient Can Go To The Location Of Their Choice, 12/07/2022 16:20:15 12/08/1912/07/2022 LIPID PANEL triglyceride 164 mg/dL (<150) high Not Available [facility] (Central[facility] Ordering - All Locations) Patient Can Go To The Location Of Their Choice, 12/07/2022 16:20:15 12/08/1912/07/2022 LIPID PANEL HDL chol 85 mg/dL (>39) Not Available [facility] (Centralized Electronic Ordering - All Locations) Patient Can Go To The Location Of Their Choice, 12/07/2022 16:20:15 12/08/1912/07/2022 LIPID PANEL LDL cholesterol, calculated 166 mg/dL (0-130 ) high Not Available [facility] (Centralized Electronic Ordering - All Locations) Patient Can Go To The Location Of Their Choice, 12/07/2022 16:20:15 12/08/1912/07/2022 LIPID PANEL non HDL cholesterol (calc) 199 mg/dL (<160) high Not Available [facility] (Centralized Electronic Ordering - All Locations) Patient Can Go To The Location Of Their Choice, 12/07/2022 16:20:15 12/08/1912/07/2022 TSH WITH REFLE X TO FT4 TSH 1.67 uIU/m L (0.4-4 .2) Not Available [facility] (Centralized Electronic Ordering - All Locations) Patient Can Go To The Location Of Their Choice, 12/07/2022 16:23:51 12/09/1912/07/2022 XR, chest , 2 view No observ ation record ed. [facility] [place] [address] [address], [place], [address], 12/08/2022 18:31:27 12/09/1912/07/2022 XR, chest , 2 view No observ ation record ed. [facility] (Ultrasound) [address], [place], [address], 12/09/2022 11:41:05 12/22/19 23 12/21/2022 elect rocbreonna diogr am No observ ation record ed. [email or web address] In-Office Order Internal Use Only DO Not Attach Compendium DO Not Attach Compendium, Do Not Delete/merge, [id number] 12/21/2022 13:03:59 12/22/19 elect rocbreonna diogr am No observ ation record ed. In-Office Order Internal Use Only DO Not Attach Compendium DO Not Attach Compendium, Do Not Delete/merge, [id number] 12/21/2022 10:20:53 03/01/20 23 02/28/2023 exerc ise stres s test No observ ation record ed. RITO Not Available 2022 11:49:24 01/02/20 24 01/02/2024 XR, knee, 1 or 2 view Right knee 2 views dated January 02, 2024. No prior studie s are availa ble. HISTOR Y: Pain. FINDIN GS: This examin ation shows no eviden ce of fractu re or disloc ation. Joint spaces are well preser rosemary. There is some minima l pointi ng of the tibial spines . No joint effusi on is demons trated . IMPRES JOY: No eviden ce of acute osseou s abnorm ality. Examin ation [id number]. Thank you for allowi ng me to partic ipate in the care of this patien t. WSN: [id number] Orderi ng Physic patrice: Mary Fang Dictat ed By: Nick Kumar MD Dictat ed Date/T scar: 3:10 pm Review ed By: Nick Kumar MD Signed By: Nick Kumar MD Signed Date/T scar: 3:10 pm Transc ribed By: JANNETTE Transc ribed Date/T scar: 3:10 pm Patien t Class: Outpat ient [facility] (Outpt Imaging) [address] , [place], [address], 01/03/2024 09:48:18 01/02/20 24 01/02/2024 XR, knee, 3 view No observ ation record ed. [email or web address] [facility] [address], [place], [address], 01/02/2024 19:58:48 05/27/20 24 05/27/2024 MRI, knee, w/o contr ast No observ ation record ed. [facility] [address] [place], [address], 05/27/2024 11:51:59 05/27/20 24 05/26/2024 MRI joint ext lower w/o contr ast right Histor y: Right knee pain. Techni que: MRI of the right knee was perfor med withou t intrav enous contra st. Compar regi: 4 Findin gs: Joint effusi on: No joint effusi on is presen t. Hoffa' s fat pad is unrema rkable . Menisc i: Comple x degene rative tear platform power technician ior horn of the medial menisc us with radial compon ent. Latera l menisc us appear s intact . Tendon s and ligame nts: The ACL and PCL are intact . The collat eral ligame nts are unrema rkable . The ilioti bial band is unrema rkable . The extens or mechan ism is normal . Bone and articu lar cartil age: Overal l bone marrow signal is within normal limits . No fractu re. No signif icant hypert rophic change s. Latera l tibiof emoral cartil age appear s intact . Mild to modera te chondr al thinni ng medial tibiof emoral compar tment. Areas of superf icial and deep fissur ing involv ing the latera l patell ar facet. Impres joy: 1. Comple x tear platform power technician ior horn of the medial menisc us. 2. Mild degene rative change s in the patell ofemor al and medial tibiof emoral compar tment. WSN: [id number] Orderi ng Physic patrice: Jerry Kumar Dictat ed By: Ena muniz MD, Antonio Browning Dictat ed Date/T scar: 11:18 a Review ed By: Antonio Stein MD Signed By: Antonio [place] MD Signed /T scar: 11:18 am Transc ribed By: JANNETTE Transc ribed /T scar: 11:13 am Patioj t Class: [facility]pat [facility] [address], [place], [address], 05/27/2024 17:03:25 08/06/19 25 08/06/2024 MAMMO , scree tari, digit al, bilat eral PROCED URE: MM Digita l Mammo Screen ing INDICA TION: Screen ing for breast cancer . No known palpab le abnorm alitie s. COMPAR REGI: Multip le priors TECHNI QUE: Full-f ield digita l CC and MLO 3D tomosy nthesi s images of both breast s were acquir ed. Comput er-aid ed detect ion (CAD) was utiliz ed in the interp retati on of this study. DENSIT Y: There are scatte red areas of fibrog landul ar densit y. FINDIN GS: No suspic ious masses , suspic ious microc alcifi cation s, or areas of flavia ectura l distor tion are seen in either breast to sugges t malign kilo. IMPRES JOY: No mammog raphic eviden ce of malign kilo. RECOMM ENDATI ON: Routin e mammog raphic screen ing BI-RAD S: 1 (Negat cortes) Lay letter mailed to celia watson WSN: [id number] Orderi ng Physic patrice: Jerry Kumar Dictat ed By: Ilene Turpin MD, V Dictat ed Date/T scar: 9:48 am Review ed By: Ilene Turpin MD, V Signed By: Ilene Turpin MD, V Signed /T scar: 9:48 am Transc ribed By: JANNETTE Transc riptio n /T scar: 9:46 am Birads : Patien t Class: Outpat ient [email or web address] [facility] (Outpt Imaging) [address], [place], [address], 08/06/2024 09:56:15 08/06/19 25 08/06/2024 MAMMO , julissae tari, bilat dalel No observ ation record ed. [email or web address] [facility] [address], [place], [address], 08/06/2024 09:56:26 Result Notes None recorded. Problems Name Problem SNOMED Code Status Onset Date Resolution Date Notes Provider Name and Address Organization Details Recorded Time Allergic rhinitis 57523475 Completed 201201/14/2014 RECORDED 04/29/20 13 11:10AM BY SANDRINE KEY MA, JASMIN ON/ADDEN DUM Not Available [facility] 4 15:09:02 Screenin g for malignan t neoplasm of breast Completed 09/09/2014 Chaparro thayer [facility] 5 09:48:28 Screenin g for malignan t neoplasm of breast Completed 201201/14/2014 RECORDED 04/29/20 13 11:09AM BY SANDRINE KYE MA, JASMIN ON/ADDEN DUM Not Available [facility] 4 15:09:02 Disorder of lower limb 355022471 Completed 201201/14/2014 IMPRESSI ON: LEFT THIGH WITH ABCESS, SON WITH A HX OF 2 PUSTULES ON CHIN BUT PLAYS HOCKEY AND WEARS A MASK, NO HX OF MRSA IN THE HOUSE, ALLERGIC TO PCN THEREFOR E WILL AVOID KEFLEX, CUTURED TO LOOK FOR MRSA TODAY, SEND TO SURGEON FOR I AND D AND FOLLOW UP NEXT WEEK, IF MRSA CHECK SENSITIV ITIES AND CONSIDER BACTRIM; RECORDED 04/29/20 13 11:10AM BY SANDRINE KEY MA, FAISALATI ON/ADDEN DUM Not Available [facility] 4 15:09:02 Cellulit is and abscess of finger 604928209 Completed 09/09/2014 Chaparro thayer [place] [facility] 5 09:48:28 Screenin g for malignan t neoplasm of cervix Completed 09/09/2014 Chaparro thayer, [facility] 5 09:48:28 Diarrhea of presumed infectio us origin 64713946 Completed 200801/14/2014 RECORDED 08/22/19 09 9:33AM BY CONNOR RODRÍGUEZ, ANNOTATI ON/ADDEN DUM Not Available [facility] 4 15:09:02 Influenz a vaccine needed 53030493278 06 Completed 201201/14/2014 RECORDED 07/12/19 13 3:32PM BY AN BOLANOS MA, NURSE VISIT Not Available [facility] 4 15:09:02 Adult health examinat ion Completed 201301/14/2014 RECORDED 10/26/19 14 11:31AM BY SANDRINE KEY MA, ANNOTRONALD ON/ADDEN DUM Not Available [facility] 4 15:09:02 Hyperlip idemia 28285559 Active Costa Miller [facility] [address] [address], [place], [address] , [facility] 5 18:13:13 Irritabl e bowel syndrome 73847879 Active Costa Miller [facility] [address] [address], [place], [address] , [facility] 5 18:13:13 Hip pain 70304989 Completed 201301/14/2014 RECORDED 10/26/19 14 11:32AM BY SANDRINE KEY MA, ANNOTATI ON/ADDEN DUM Not Available [facility] 4 15:09:02 Localize d superfic ial swelling of skin 635285217 Completed 201201/14/2014 RECORDED 04/29/20 13 11:09AM BY SANDRINE KEY MA, ANNOTATI ON/ADDEN DUM Not Available [facility] 4 15:09:02 Menopaus al symptom 23025471 Completed 201301/14/2014 STORY: JERRI DOES STAFF PHARMACIST CARE.; RECORDED 10/26/19 14 11:32AM BY SANDRINE KEY MA, ANNOTATI ON/ADDEN DUM Not Available [facility] 4 15:09:02 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 Completed 201201/14/2014 RECORDED 04/29/20 13 11:09AM BY SANDRINE KEY MA, ANNOTATI ON/ADDEN DUM Not Available [facility] 4 15:09:02 Administ ration of bacteria l and viral vaccine Completed 200801/14/2014 RECORDED 08/22/19 09 9:41AM BY CONNOR RODRÍGUEZ, OFFICE VISIT Not Available [facility] 4 15:09:02 Patient status finding 620257318 Completed 09/09/2014 Chaparro thayer, [facility] 5 09:48:28 Patient status finding 385180353 Completed 201301/14/2014 RECORDED 10/26/19 14 11:31AM BY SANDRINE KEY MA, ANNOTATI ON/ADDEN DUM Not Available [facility] 4 15:09:03 Rosacea 907446661 Active Costa Miller, [facility] [address] [facility] [address], [place], [address] , [facility] 5 18:13:13 Allergic rhinitis 26557896 Active Arslan thayer [facility] 5 16:55:11 Screenin g for malignan t neoplasm of colon Completed 200801/14/2014 RECORDED 08/22/19 09 9:33AM BY CONNOR RODRÍGUEZ, ANNOTATI ON/ADDEN DUM Not Available [facility] 4 15:09:03 Miscarri age with complica tion 02584466 Completed 199601/14/2014 DATE: 05/1997; ; RECORDED 04/29/20 13 11:07AM BY SANDRINE KEY MA, ANNOTATI ON/ADDEN DUM Not Available [facility] 4 15:09:03 Sprain of knee and leg Completed 201201/14/2014 RECORDED 04/29/20 13 11:08AM BY SANDRINE KEY MA, JASMIN ON/ADDEN DUM Not Available [facility] 4 15:09:03 Viral disease 63871158 Completed 201201/14/2014 RECORDED 04/29/20 13 11:09AM BY SANDRINE KEY MA, FAISALATI ON/ADDEN DUM Not Available [facility] 4 15:09:03 Allergic rhinitis 23348414 Completed 201202/03/2014 RECORDED 04/29/20 13 11:10AM BY SANDRINE KEY MA, JASMIN ON/ADDEN DUM Not Available [facility] 4 07:01:13 Disorder of lower limb 179062237 Completed 201202/03/2014 IMPRESSI ON: LEFT THIGH WITH ABCESS, SON WITH A HX OF 2 PUSTULES ON CHIN BUT PLAYS HOCKEY AND WEARS A MASK, NO HX OF MRSA IN THE HOUSE, ALLERGIC TO PCN THEREFOR E WILL AVOID KEFLEX, CUTURED TO LOOK FOR MRSA TODAY, SEND TO SURGEON FOR I AND D AND FOLLOW UP NEXT WEEK, IF MRSA CHECK SENSITIV ITIES AND CONSIDER BACTRIM; RECORDED 04/29/20 13 11:10AM BY SANDRINE KEY MA, JASMIN ON/ADDEN DUM Not Available [facility] 4 07:01:13 Diarrhea of presumed infectio us origin 89558799 Completed 200802/03/2014 RECORDED 08/22/19 09 9:33AM BY JASMIN BOLTON ON/ADDEN DUM Not Available [facility] 4 07:01:13 Influenz a vaccine needed 61501831352 06 Completed 201202/03/2014 RECORDED 07/12/19 13 3:32PM BY AN BOLANOS MA, NURSE VISIT Not Available [facility] 4 07:01:13 Adult health examinat ion Completed 201302/03/2014 RECORDED 10/26/19 14 11:31AM BY SANDRINE KEY MA, JASMIN ON/ADDEN DUM Not Available [facility] 4 07:01:13 Hip pain 34284738 Completed 201302/03/2014 RECORDED 10/26/19 14 11:32AM BY SANDRINE KEY MA, ANNOTATI ON/ADDEN DUM Not Available [facility] 4 07:01:13 Localize d superfic ial swelling of skin 702158429 Completed 201202/03/2014 RECORDED 04/29/20 13 11:09AM BY SANDRINE KEY MA, FAISALATI ON/ADDEN DUM Not Available [facility] 4 07:01:13 Menopaus al symptom 35450092 Completed 201302/03/2014 STORY: JERRI DOES STAFF PHARMACIST CARE.; RECORDED 10/26/19 14 11:32AM BY SANDRINE KEY MA, ANNOTATI ON/ADDEN DUM Not Available [facility] 4 07:01:13 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 329781153 Completed 201202/03/2014 RECORDED 04/29/20 13 11:09AM BY SANDRINE KEY MA, ANNOTATI ON/ADDEN DUM Not Available [facility] 4 07:01:13 Administ ration of bacteria l and viral vaccine Completed 200802/03/2014 RECORDED 08/22/19 09 9:41AM BY CONNOR RODRÍGUEZ, OFFICE VISIT Not Available [facility] 4 07:01:13 Screenin g for malignan t neoplasm of colon Completed 200802/03/2014 RECORDED 08/22/19 09 9:33AM BY CONNOR RODRÍGUEZ, FAISALATI ON/ADDEN DUM Not Available [facility] 4 07:01:13 Miscarri age with complica tion [id number] Completed 199602/03/2014 DATE: 05/1997; ; RECORDED 04/29/20 13 11:07AM BY SANDRINE KEY MA, ANNOTATI ON/ADDEN DUM Not Available [facility] 4 07:01:14 Sprain of knee and leg Completed 201202/03/2014 RECORDED 04/29/20 13 11:08AM BY SANDRINE KEY MA, ANNOTATI ON/ADDEN DUM Not Available [facility] 4 07:01:14 Viral disease 89827857 Completed 201202/03/2014 RECORDED 04/29/20 13 11:09AM BY SANDRINE KEY MA, ANNOTRONALD ON/ADDEN DUM Not Available [facility] 4 07:01:14 Cough 06838640 Completed 04/07/2017 Charisse thayer, [facility] 7 09:17:21 COVID-19 [id number] Completed 201912/22/2023 CONNOR Lucas, [facility] 4 11:05:49 Dyspnea on exertion 88220383 Active 2022 Omayra thayer, [facility] 3 11:02:57 Electroc ardiogra m abnormal 289365703 Active 2022 Malina Kumar PA-C [address], [place], [address] , [facility] [place] 3 10:30:20 Body mass index 25-29 - overweig ht 331644838 Active 2022 Malina Kumar PA-C [address], [place], [address] , [facility] [place] 3 10:31:06 Problem Notes None recorded. Procedures Surgical History Date Name Laterality Status Provider Name and Address Organization Details Recorded Time 08/06/19 25 Most Recent Mammogram completed Kerry Juárez [facility] 08/06/2024 09:56:11 02/23/20 23 Colonoscopy completed Kerry Juárez [facility] 06/07/2024 09:20:43 06/16/20 16 Date of Last Pap Smear completed Pricila Martins MA [facility] 12/17/2021 10:15:45 01/24/19 93 Appendectomy completed Pricila Martins MA [facility] 12/17/2021 10:28:30 Imaging Results Imaging Date Name Status LastModified by Organization Details LastModified Time 12/07/2022 XR, chest, 2 view completed [facility] [address], [place], [address], 12/08/2022 18:31:27 12/07/2022 XR, chest, 2 view completed thony [facility] (Ultrasound) [address], [place], [address], 12/09/2022 11:41:05 12/21/2022 electrocardiogram completed [email or web address] In-Offi ce Order Internal Use Only DO Not Attach Compendium DO Not Attach Compendium, Do Not Delete/merge, [id number] 12/21/2022 13:03:59 12/21/2022 electrocardiogram completed In-Offi ce Order Internal Use Only DO Not Attach Compendium DO Not Attach Compendium, Do Not Delete/merge, [id number] 12/21/2022 10:20:53 02/28/2023 exercise stress test completed PAWNEE Info rmation not available 03/07/2023 11:49:24 01/02/2024 XR, knee, 1 or 2 view completed [facility] (Outpt Imaging) [address] [place], [address], 01/03/2024 09:48:18 01/02/2024 XR, knee, 3 view completed [email or web address] [facility] [address] [place], [address], 01/02/2024 19:58:48 05/27/2024 MRI, knee, w/o contrast completed [facility] [address] [place], [address], 05/27/2024 11:51:59 05/26/2024 MRI joint ext lower w/o contrast right completed [facility] (Outpt Imaging) [address] [place], [address], 05/27/2024 17:03:25 08/06/2024 MAMMO, screening, digital, bilateral completed [email or web address] [facility] (Outpt Imaging) [address] , [place], [address], 08/06/2024 09:56:15 08/06/2024 MAMMO, screening, bilateral completed [email or web address] [facility] [address], [place], [address], 08/06/2024 09:56:26 Procedure Notes None recorded. Medical Equipment None Reported. Allergies Allergen ID Allergen Name Allergen Category Reaction Reaction Severity Criticality Documentation Date Start Date Code Code System Note Provider Name and Address Organization Details Recorded Time 09388 Product containin g penicilli n (product) medicatio n rash Not available Not available 01/07/20142013 78608 8001 SNOMED Charisse thayer [facility] 7 09:15:50 21416 Substance with sulfonami de structure and antibacte rial mechanism of action (substanc e) medicatio n rash Not available Not available 04/07/2017 81466 8003 OMED Charisse thayer [facility] 7 10:14:30 Medications Name Sig Start Date Stop Date Status Note LastModified by Organization Details LastModified Time budesonid e 32 mcg/actua tion nasal spray,aer osol QD 12/31 completed RECORDED 01/02/20 08 8:13AM BY BOONE SCRUGGS MA, OFFICE VISIT; Not Available Not Available Not Available acetamino phen 325 mg tablet TK 3 TS PO Q 6 H PRN P 05/28 completed Not Available Not Available Not Available venlafaxi ne ER 75 mg capsule,e xtended release 24 hr Take 1 capsule every day by oral route for 30 days. 08/10 completed Not Available Not Available Not Available paroxetin e 10 mg tablet Take 1 tablet every day by oral route for 30 days. 07/08 completed Not Available Not Available Not Available clindamyc in HCl 300 mg capsule 04/07 completed Not Available Not Available Not Available cetirizin e 10 mg tablet Take 1 tablet every day by oral route for 30 days. 08/10 completed Not Available Not Available Not Available azithromy lou 250 mg tablet 12/21 completed Not Available Not Available Not Available minocycli ne 100 mg capsule TWO TIMES DAILY active RECORDED 10/26/19 14 11:40AM BY SANDRINE KEY MA, OFFICE VISIT;FO R 10DAYS Not Available Not Available Not Available meloxicam 15 mg tablet Take 1 tablet every day by oral route for 30 days. 06/05 completed Not Available Not Available Not Available estradiol 0.1 mg/24 hr semiweekl y transderm al patch 08/10 completed Not Available Not Available Not Available moxifloxa lou 400 mg tablet DAILY 09/01 completed RECORDED 10/21/19 09 3:30PM BY TONY Landis MD, MEDICATI ON AUTO-HASEEB CTIVATIO N; Not Available Not Available Not Available metronida zole 500 mg tablet THREE TIMES DAILY 01/07 completed RECORDED 01/09/20 08 9:01AM BY TY Muniz NP, MEDICATI ON AUTO-HASEEB CTIVATIO N; Not Available Not Available Not Available Bactroban 2 % topical ointment TWO TIMES DAILY 11/11 completed RECORDED 01/23/20 13 10:44AM BY PRICILA DEWITT PA-C, MEDICATI ON AUTO-HASEEB CTIVATIO N; Not Available Not Available Not Available oseltamiv ir 75 mg capsule DAILY 10/30 completed RECORDED 11/26/19 09 11:02AM BY ARSLAN COSTA MD, MEDICATI ON AUTO-HASEEB CTIVATIO N; Not Available Not Available Not Available ibuprofen 400 mg tablet 05/28 completed Not Available Not Available Not Available progester one micronize d 200 mg capsule 08/10 completed Not Available Not Available Not Available Protopic 0.03 % topical ointment active Not Available Not Available Not Available codeine 10 mg-guaife nesin 100 mg/5 mL oral liquid take 10 millilit ers (2 teaspoon fuls) by mouth every 4 hours if needed for 7 days 05/28 completed Not Available Not Available Not Available norethind ronal acetate 5 mg tablet 08/10 completed Not Available Not Available Not Available Naprosyn 500 mg tablet TWO TIMES DAILY active RECORDED 10/26/19 14 11:32AM BY SANDRINE KEY MA, OFFICE VISIT; Not Available Not Available Not Available hydrocort isone 2.5 % topical ointment prn 12/21 completed Not Available Not Available Not Available fluticaso ne propionat e 50 mcg/actua tion nasal spray,arcadio pension Inhale 2 sprays every day by intranas al route each nostril once daily for 30 days. 04/07 completed Not Available Not Available Not Available progester one micronize d 100 mg capsule 08/10 completed Not Available Not Available Not Available tobramyci n 0.3 %-dexamet hasone 0.1 % eye drops,arcadio pension 07/08 completed Not Available Not Available Not Available Copan 3 capsule Take by oral route. 12/07 completed Not Available Not Available Not Available psyllium husk 0.52 gram capsule TWO TIMES DAILY 04/29 completed RECORDED 04/29/20 13 11:15AM BY SANDRINE KEY MA, ANNOTATI ON/ADDEN DUM; Not Available Not Available Not Available June FE 07/15 (28) 1 mg-20 mcg (21)/75 mg (7) tablet Take 1 tablet every day by oral route for 84 days. 04/07 completed Not Available Not Available Not Available Vitamin D3 12/21 completed Not Available Not Available Not Available red yeast rice 600 mg capsule Take 2 capsules every day by oral route. 12/21 completed Not Available Not Available Not Available fexofenad ine 30 mg disintegr ating tablet BID 12/31 completed RECORDED 01/02/20 08 8:13AM BY BOONE SCRUGGS MA, OFFICE VISIT; Not Available Not Available Not Available Evamist 1.53 mg/spray (1.7 %) transderm al spray 08/10 completed Not Available Not Available Not Available GaviLyte- G 236 gram-22.7 4 gram-6.74 gram-5.86 gram oral solution USE DIRECTED 12/21 completed Not Available Not Available Not Available Lo Loestrin Fe 1 mg-10 mcg (24)/10 mcg (2) tablet 04/07 completed Not Available Not Available Not Available lidocaine 5 % topical ointment 05/28 completed Not Available Not Available Not Available Vitals Date Recorded Body height Body mass index (BMI) Body weight Oxygen saturation Oxygen saturation in Arterial blood by Pulse oximetry Heart rate Body temperature Systolic blood pressure Diastolic blood pressure Provider Name and Address Organization Details Last Updated DateTime 3 157.48 cm 28.4 kg/m2 67915.9 2 g 98 % 98 % 65 /min 98.2 [degF] 123 mm[Hg] 78 mm[Hg] Nataliia Barfield MA [facility] 3 10:46:16 Date Recorded Body height Body mass index (BMI) Body weight Oxygen saturation Oxygen saturation in Arterial blood by Pulse oximetry Heart rate Body temperature Systolic blood pressure Diastolic blood pressure Provider Name and Address Organization Details Last Updated DateTime 3 157.48 cm 28.7 kg/m2 32906.7 g 98 % 98 % 66 /min 97.5 [degF] 121 mm[Hg] 78 mm[Hg] Nataliia Barfield MA [facility] 3 09:09:07 Date Recorded Body weight Body mass index (BMI) Body height Heart rate Oxygen saturation Oxygen saturation in Arterial blood by Pulse oximetry Body temperature Systolic blood pressure Diastolic blood pressure Provider Name and Address Organization Details Last Updated DateTime 4 04926.8 2 g 28.3 kg/m2 157.48 cm 63 /min 97 % 97 % 97.9 [degF] 120 mm[Hg] 66 mm[Hg] Boone pozo MA [facility] 4 11:05:38 Date Recorded Body height Body mass index (BMI) Body weight Heart rate Oxygen saturation Oxygen saturation in Arterial blood by Pulse oximetry Body temperature Systolic blood pressure Diastolic blood pressure Provider Name and Address Organization Details Last Updated DateTime 4 157.48 cm 29.3 kg/m2 71971.7 8 g 69 /min 98 % 98 % 98.2 [degF] 114 mm[Hg] 77 mm[Hg] Grace Mauro LPN [facility] 4 15:32:59 Date Recorded Body height Body mass index (BMI) Body weight Heart rate Oxygen saturation Oxygen saturation in Arterial blood by Pulse oximetry Body temperature Systolic blood pressure Diastolic blood pressure Provider Name and Address Organization Details Last Updated DateTime 4 157.48 cm 29.3 kg/m2 34386.7 8 g 87 /min 97 % 97 % 98 [degF] 114 mm[Hg] 72 mm[Hg] Teddy elkins [facility] 4 10:29:48 Social History Question Answer Notes LastModified by Organizat ion Details LastModified Time Tobacco Smoking Status Never Smoker CONNOR Gonzalez, [facility] 09/09/2014 09:34:11 What Is Your Level Of Alcohol Consumption? Occasional [email or web address] Information not available 09/09/2014 Is Blood Transfusion Acceptable In An Emergency? Yes Information not available 04/07/2017 What Is Your Level Of Caffeine Consumption? Moderate ~1 Up Daily. Information not available 12/17/2021 Are You Currently Employed? Yes [email or web address] Information not available 09/09/2014 What Type Of Diet Are You Following? REGULAR Occasional Gluten Free Information not available 12/17/2021 Which Illicit Or Recreational Drugs Have You Used? None Information not available 12/17/2021 Do You Or Have You Ever Used E-cigarettes Or Vape? 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 With Others ([place] ) 1 Son Information not available 12/17/2021 Do You Take Precautions To Prevent Distracted Driving? Yes Information not available 04/07/2017 How Often Do You Need To Have Someone Help You When You Read Instructions, Pamphlets, Or Other Written Material From Your Doctor Or Pharmacy? Never Information not available 04/07/2017 Have You Served In The ? No Information not available 04/07/2017 Have You Or Anyone In Your Household Had Any Of The Following Symptoms In The Last 14 Days: Sore Throat, Cough, Chills, Body Aches For Unknown Reasons, Shortness Of Breath For Unknown Reasons, Loss Of Smell, Loss Of Taste, Fever At Or Greater Than 100 Degrees Fahrenheit? No Information not available 05/28/2020 Are You Or Anyone In Your Household A Health Care Provider Or Emergency Responder? No Information not available 05/28/2020 To The Best Of Your Knowledge Have You Been In Close Proximity To Any Individual Who Tested Positive For COVID-19? No Information not available 05/28/2020 What Was The Date Of Your Most Recent Tobacco Screening? 06/05/2024 [email or web address] Information not available 06/05/2024 How Many Children Do You Have? 2 2 Boys 83=8340 [email or web address] Information not available 04/07/2017 Do You Use Protection During Sex? No Information not available 12/17/2021 Do You Use Your Seat Belt Or Car Seat Routinely? Yes Information not available 12/17/2021 Seat Belts Used Routinely Yes Information not available 12/17/2021 Are You Sexually Active? Yes Information not available 12/17/2021 Smoke Alarm In Home Yes Information not available 12/17/2021 Do You Have Smoke And Carbon Monoxide Detectors In Your Home? Yes Information not available 12/17/2021 Are You Passively Exposed To Smoke? No Information not available 04/07/2017 Do You Or Have You Ever Used Smokeless Tobacco? Never Used Smokeless Tobacco Information not available 05/28/2020 How Much Tobacco Do You Smoke? No Information not available 04/07/2017 General Stress Level Low Information not available 12/17/2021 Do You Use Any Illicit Or Recreational Drugs? No Information not available 12/17/2021 Do You Use Sunscreen Routinely? Yes [email or web address] Information not available 09/09/2014 Do You Or Have You Ever Used Any Other Forms Of Tobacco Or Nicotine? No [email or web address] Information not available 12/22/2023 Sex: Unknown Functional Status Question Answer Note LastModified by Organizat ion Details LastModified Time Are you able to walk? YESWOREST severino Information not available 12/17/2021 Are you able to care for yourself? Yes [email or web address] Information not available 09/09/2014 What is your exercise level? Moderate 4-5 times week. strength and cardio. Information not available 12/17/2021 Mental Status None recorded. Family History Relationship Description Onset Age of this Age Resolved Age Notes LastModified by Organization Details LastModified Time Mother Hypertensive disorder [email or web address] Not available 09/09 09:33:31 Father Hypertensive disorder parent s are 6870- [phone] [email or web address] Not available 04/07/2017 10:26:30 Father Myocardial infarction Dad had OR age 58 [email or web address] Not available 12/17/2021 10:23:49 Father Transient cerebral ischemia 74 [email or web address] Not available 2021 10:56:23 Maternal Aunt Osteoporosis com pre ssion fractu res/la te 70s [email or web address] Not available 04/07/2017 10:31:28 Maternal Grandmother Congestive heart failure CHf 75 [email or web address] Not available 12/17 10:23:49 Notes:No FH of breast or col on cancer Medical History Condition Response Gout N Other N Kidney Stones N Blood Diseases N Hyperthyroidism N Breast Cancer N Hypothyroidism N Lung Disease N Depression N COPD N Defects or Inherited Disease N Anesthesia Complications N Headaches/Migraines N Anxiety Disorder N Varicose Veins N Obesity N Vision or Eye Problems N Arthritis N Head Injury/Concussion N Infertility N Polyps N Congenital Anomalies N Acid Reflux (GERD) N Cancer N Stroke N ADHD N Endometriosis N High Cholesterol N Liver Disease N Fibromyalgia N Kidney Disease N Heart Problems N Ear or Hearing Problems N Hospitalizations N Thyroid Problems N GI Problems Y Acne N Eating Disorder N Skin Problems N Anemia N Constipation N Bladder Problems N Mental Illness N Diabetes N Ovarian Cancer N Blood Transfusions N Seizures/Epilepsy N Tuberculosis N AIDS/HIV N Congestive Heart Failure (CHF) N Eczema N Abuse/Domestic Violence N Diverticulitis N Asthma N Allergies Y Reflux/GERD N Hepatitis N Pulmonary Embolism N Hypertension N Chicken Pox Y Autism Spectrum Disorder (ASD) N Osteoporosis N Gynecological History Statement/Question Response Abnormal Pap Y Date of Last Pap Smear 06/16/2016 Date of Last Colonoscopy Most Recent Mammogram 08/06/2024 Obstetrics History GPAL:G 0 P 0 0 0 0 Immunizations Vaccine Type Date Status Note Provider Name and Address Organization Details Recorded Time COVID-19, mRNA, LNP-S, PF, 30 mcg/0.3 mL dose 07/02/19 22 completed CONNOR Michel, [facility] 12/17/2021 10:36:07 COVID-19, mRNA, LNP-S, PF, 30 mcg/0.3 mL dose 10/11/19 21 completed CONNOR Michel, [facility] 12/17/2021 10:36:07 COVID-19, mRNA, LNP-S, PF, 30 mcg/0.3 mL dose 11/01/19 21 completed Pricila DeyviCONNOR Reid, [facility] 12/17/2021 10:36:07 Influenza, split virus, quadrivalent, PF 04/07/20 17 cancelled patient objection Not Available [facility] 07/13/2019 02:22:13 Tdap 08/22/19 09 completed Not Available [facility] 01/07/2014 13:22:52 influenza, seasonal, intradermal, preservative free 07/12/19 13 completed Not Available [facility] 01/07/2014 13:22:52 Tdap 08/10/19 19 completed Not Available [facility] 07/13/2019 02:21:49 Past Encounters Encounter ID Performer Location Encounter Start Date Encounter Closed Date Diagnosis/Indication Diagnosis SNOMED-CT Code Diagnosis ICD10 Code Diagnosis Note [id number] autoEComm erce [address] [facility] [place] [address] 10/05/2004 00:00:00 [id number] autoEComm erce [address] [facility] [place] [address] 10/05/2004 00:00:00 [id number] autoEComm erce [address] [facility] [place] [address] 10/22/2003 00:00:00 [id number] autoEComm erce [address] [place] [address] 10/22/2003 00:00:00 [id number] autoEComm erce [address] [place] [address] 10/22/2003 00:00:00 [id number] autoEComm erce [address] [facility] [address] [place] [address] 03/15/2002 00:00:00 [id number] autoEComm erce [address] [facility] [address] [place] [address] 03/12/2002 00:00:00 [id number] autoEComm erce [address] [facility] [address] [place] [address] 03/12/2002 00:00:00 [id number] autoEComm erce [address] [facility] [place] [address] 03/12/2002 00:00:00 [id number] autoEComm erce [address] [facility] [place] [address] 10/24/2006 00:00:00 [id number] autoEComm erce [address] [facility] [place] [address] 10/24/2006 00:00:00 [id number] autoEComm erce [address] [facility] [place] [address] 10/24/2006 00:00:00 [id number] autoEComm erce [address] [facility],[address] [place] [address] 01/01/2008 00:00:00 [id number] autoEComm erce [address] [facility] [place] [address] 08/22/2008 00:00:00 [id number] autoEComm erce [address] [facility] [place] [address] 08/22/2008 00:00:00 [id number] autoEComm erce [address] [facility] [place] [address] 11/25/2008 00:00:00 [id number] autoEComm erce [address] [facility] [place] [address] 11/25/2008 00:00:00 [id number] autoEComm erce [address] [facility] [place] [address] 11/30/2009 00:00:00 [id number] autoEComm erce [address] [facility] [place] [address] 11/30/2009 00:00:00 [id number] autoEComm erce [address] [facility] [place] [address] 04/29/2013 00:00:00 [id number] autoEComm erce [address] [facility] [place] [address] 04/29/2013 00:00:00 [id number] autoEComm erce [address] [facility] [place] [address] 04/29/2013 00:00:00 [id number] autoEComm erce [address] [facility] [place] [address] 04/29/2013 00:00:00 [id number] autoEComm erce [address] [facility] [place] [address] 10/25/2013 00:00:00 [id number] autoEComm erce [address] [facility] [place] [address] 10/25/2013 00:00:00 [id number] Shellie García Main Office [address] [facility] [address] [place] [address] 09/09/2014 09:25:32 09/09/2014 10:07:26 Cough 90334318 secondary to allergies most likely. less likely viral. loratadine and flonase for 3 days. call if not improving Allergic rhinitis 29969400 establishe d problem with worsening. she also wonders if she has some food allergies. will refer to acid painter for testing [id number] Rufus Colorado MD Main Office [address] [facility] [address] [place] [address] 04/12/2016 13:26:16 04/12/2016 13:48:27 Tuberculosis screening 684010539 Z11.1 [id number] Tony ontiveros Main Office [address] [facility] [address] [place] [address] 04/15/2016 11:35:58 04/15/2016 11:44:57 [id number] Arslan black Main Office [address] [facility] [address] [place] [address] 04/07/2017 10:05:36 04/07/2017 10:59:24 Adult health examination 575581648 Z00.00 Immunization refused 275 925898 Z28.20 Menopause present 156090 006 N95.1 Pruritic rash 77170675 L 28.2 [id number] Malina Kumar PA-C Main Office [address] [address] [place] [address] 08/10/2018 16:09:00 08/10/2018 16:52:02 Adult health examination 111537634 Z00.00 Screening for malignant neoplasm of breast 053438607 Z12.39 Screening for malignant neoplasm of colon 616291492 Z12.11 Hyperlipidemia 85116217 E78.00 Administra tion of tetanus vaccine 696978812 Z23 Fatigue 99093277 R53.83 [id number] Kate Dennison Main Office [address] [address] [place] [address] 07/08/2019 15:55:00 07/08/2019 16:43:37 Hemoptysis 81606399 R04.2 check chest xray to rule on pneumonia, mass. Persistent cough 2267966 02 R05 Hydration, otc cough med in the day and rx at night or when home as needed. Call if not improving within a few days to a week, sooner if worsening. Likely viral at this time, will call prn if not better. [id number] Kate Dennison Main Office [address] [address] [place] [address] 05/28/2020 10:01:52 05/28/2020 10:43:00 Gallstone 584733273 K80.20 Advised low fat diet, pt to see surgeon for evaluation of need for cholecyste ctomy. Call if any acute sx develop in the interim. Liver enzy mes level above reference range 928729341 R74.01 repeat today Diarrhea 99253404 R19.7 Has some IBS but this seems increased, will check stool studies and do labs for celiac. GI referral, pt due for colon screening. Counseling 973004410 Z71 .9 Health advice, education or counseling done for COVID 19 COVID-19 270885173 U07.1 Pt had covid and is mostly recovered, has slight cough but not fever. [id number] Malina Kumar PA-C Main Office [address] [place] [address] 12/17/2021 10:23:32 12/17/2021 11:32:38 Adult health examination 581581644 Z00.00 will schedule Mammo and pap with STAFF PHARMACIST. advised yearly flu shot in fall. Screening for malignant neoplasm of breast 630258083 Z12.39 order placed for screening mammo. pt will schedule. Screening for malignant neoplasm of cervix 888630481 Z12.4 will schedule with STAFF PHARMACIST Screening for malignant neoplasm of colon 501295596 Z12.11 Hyperlipidemia 38114914 E78.00 continue diet and exercise. Irritable bowel syndrome 14655394 K58.9 stable with diet. Body mass index 25-29 - overweight 845393837 E66.3 Z68.27 continue exercise and diet. Vitamin D deficiency 347 97334 E55.9 Asthenia 11520808 R53.81 [id number] Tony [facility] Main Office [address] [facility] [address] [place] [address] 02/25/2022 09:31:22 02/25/2022 10:03:06 Soft mass of abdomen [id number] R19.00 - first appeared in November and slowly getting large- differenti als: lipoma vs cyst, very low probably of a ventral hernia- hx of abdominal surgery in 1992 (appendect piyush)- ordered US of the abdominal wall for further evaluation of the mass- will determine is general surgery referral needed after results have been reviewed. [id number] Malina Kumar PA-C Main Office [address] [place] [address] 12/07/2022 10:32:55 12/07/2022 11:19:37 Dyspnea on exertion [id number] R06.09 Pt has been experienci ng dyspnea on exertion since began training for marathon in fall of 2021 . BMI has increased to 28.4. Most likely cause is activity is too high for conditioni ng . Check labschest x-ray to r/o any pulmonary etiology. Pt. will return for physical end of the month. WE carlos also do ekg. Hyperlipidemia 73315246 E78.00 continue diet and exercise. Weight gain 7599399 R63. 5 [id number] Malina Kumar PA-C Main Office [address] [place] [address] 12/21/2022 08:55:59 12/21/2022 10:05:55 Adult health examination [id number] Z00.00 will schedule Mammo and pap with STAFF PHARMACIST. recommend to et shingrix. Hyperlipidemia 45608495 E78.00 continue diet and exercise.r etest lipids in 1 year. Pt. has low ASCVD risk. Irritable bowel syndrome 28752915 K58.9 stable with diet. Screening for malignant neoplasm of cervix 761565057 Z12.4 will schedule with STAFF PHARMACIST Perimenopa usal disorder [id number] N95.9 recommend to discuss hormone replacemen t with the STAFF PHARMACIST. PT. is overdue for PapSmear as well. Varicella vaccination 68 572473 Z23 Body mass index 25-29 - overweight 828161152 E66.3 Z68.28 Lower total calories. Hold exercise until stress test is completed. Dyspnea 628940745 R06.00 Nonspecifi c EKG abnormalit y, exercise intoleranc e . Recommend pulmonary function testing and exercise stress test. Electrocar diogram abnormal 495570589 R94.31 schedule exercise stress test. Avoid strenuous exercise until after evaluation is completed. [id number] SAI LLOYD Main Office [address] [place] [address] 12/22/2023 10:41:52 12/22/2023 11:16:43 Pain of right knee region [id number] 63635 M25.561 x1 month of right knee pain; pain with weight bearing and ambulation -pain localized to the lateral and medial aspects of the knee; possibly IT band strain-has FROM, no edema, or skin discolorat ion-negati ve for the special knee tests; anterior drawer test, posterior drawer test, valgus stress test, and varus stress test-will refer to PT and r/o fx with xray-discu ssed conservati ve measuremen ts [id number] Malina Kumar PA-C Main Office [address] [facility] [address] [place] [address] 04/30/2024 15:17:30 04/30/2024 16:08:34 Pain of right knee region [id number] 84397 M25.561 persistent since November and is partially only improved by 2 months course of PT. At this point MRI of the knee and referral to orthopedis t are advised. [id number] Malina Kumar PA-C Main Office [address] [facility] [address] [place] [address] 06/05/2024 10:22:03 06/05/2024 11:03:42 Adult health examination [id number] Z00.00 Pt. is overdue for PapSmear and mammogram. Referrals were provided. Colonoscop y done , results requested. Recom shingrix and seasonal vaccines. Body mass index 25-29 - overweight 035621494 E66.3 Z68.29 recommend to increase cardio exercise activity. Pt. is doing more weight training. Retest all metabolic labs. F/u 1 year or sooner if weight is trending up or abnormal glucose levels. Hyperlipidemia 77863057 E78.00 continue low fat diet , repeat labs. Irritable bowel syndrome 00460096 K58.9 stable with diet. Allergic rhinitis 259334 04 J30.9 stable Screening for malignant neoplasm of breast 374508889 Z12.39 order placed for screening mammo. pt will schedule. Screening for malignant neoplasm of cervix 877858621 Z12.4 will schedule with STAFF PHARMACIST Vitamin D deficiency 347 45891 E55.9 Varicella vaccination 68 726597 Z23 Health Concerns Section Related Observation LastModified by Organization Detai ls LastModified Time None Recorded Concern Status LastModified by Organization Details LastModified Time None Recorded Advance Directives Directive None Recorded Payers Encounter Date Sequence Insurance Name Policy Number Policy Vitale Covered Member ID Vitale Member ID Guarantor Name 12/07/2022 1 [employer] [employer] [place] [place] [address] [place] [place] [id number] [employer] [place] 12/21/2022 1 [facility] [address] [place] [id number] [employer] [place] 12/22/2023 1 [facility] [employer] [place] [place] [address] [place] [id number] [employer] [place] 04/30/2024 1 [employer] [employer] [address] [place] [id number] [employer] [place] 06/05/2024 1 [facility] [employer] [place] [place] [address] [place] [place] [id number] [employer] [place] Notes Date Note Type Note Provider Name and Address Organization Details Recorded Time 12/07/2022 text/html 52 y.o female he re today for SOB.Pt has been experiencing consistent SOB with exertion, specifically while exercising, for 3 years. She is an avid runner and states that recently she has to stop while she is running to cath her breath. She will then walk for 1-2 minutes until she feels that she can run again. She states that when she feels SOB, her HR increases to 160s. She reports occasional dizziness and light headedness when this occurs. She attributes these symptoms to her having Covid in Jun 2019 and Apr 2020.Pt denies any chest pain, wheezing, cough, fatigue, abdominal pain, vomiting. Malina Kumar PA-C [address] [address], [place], [address], [facility] [place] 12/07/2022 12:04:28 12/21/2022 text/html Generic HPI TemplateReported bypatient.Notes:52 year old female for annual PE. Overdue for PapSmear, had mammogram 2 months ago. Colonoscopy scheduled as well.vaccines are up to date except for shingrix.Labs: LDL 166, TC 284, HDL 85. BMI 28.7. NO family h/o stroke , coronary atherosclerosis , thyroid or diabetes. Pt. is regularly physically active and reported some shortness of breath with exercise for the past few months and weight gain. TSH is normal as well as glucose and Vit D levels.Chest xray unremarkable/ EKG in office with nonspecific ST-T abn anterior leads. Pt. has no chest symptoms. Nonsmoker.Post menopausal , last period was over 1 year ago , but continues with severe hot flashes at night.PHQ and KOFI are normal. Malina Kumar PA-C [address] [facility] [address], [place], [address], [facility] [place] 12/21/2022 10:36:30 12/22/2023 text/html Yoana is a 53yr old F who presents for right knee pain x1 month. Pt is an avid runner, about 3-5mi a week. Has been experiencing worsening knee pain over the past 5 days. Reports of having pain with ambulation and changing position from sitting to standing. Has been applying ice which provides relief. Denies of any swelling or pain with flexion/extension. SAI LLOYD [address] [facility] [address], [place], [address], [facility] [place] 12/22/2023 11:20:26 04/30/2024 text/html 53 year old fema le for R. inner knee persistent pain. Started when pt was on her run in November. NO acute injury. [place] soreness in the medial knee and it gradually increased. Pt. was seen in the office and referred for physical therapy . xray in December was unremarkable. Pt. reports she is doing PT exercises for the last 2 months and improved about 30-40% , but still in pain at night and if she crosses her leg or to palpation of the medial knee. Denies swelling. Reports PT at [facility] recommends MRI of the knee for further evaluation. Pt. is unable to run for the last several months. Malina Kumar PA-C [address], [place], [address], [facility] [place] 04/30/2024 16:36:38 06/05/2024 text/html Generic HPI TemplateReported bypatient.Notes:53 year old female for annual PE. Overdue for PapSmear, had mammogram is overdue since September.Colonoscopy was this year. Results are not avail. but pt reports it was normal.Vaccines: Tdap is up to date, no shingrix or flu. Pt. is not interesetd in COVID booster or flu vaccine. Hyperlipidemia: last ldl in 2022 was at 166, trg 164, HDL 85, TC 284. NO family h/o stroke , coronary atherosclerosis , thyroid or diabetes. Pt. is regularly physically active Post menopausal , last period was over 1 year ago , but continues with severe hot flashes at night.PHQ and KOFI are normal. Malina Kumar PA-C [address] [address], [place], [address], [facility] [place] 06/05/2024 11:05:03 OBGyn Episode No OBEpisode recorded.
== END 2024-09-27 12:03 | disposition home or self-care (01) ==
LOC: HO.HMGCX 12:02
PROVIDERS: PCP Internal Medicine; Visit Provider Physician Assistant Medical
DX: R05.3 Chronic cough (principal)
CPT/HCPCS: 71046

== ENCOUNTER → 2024-09-27 13:18 | Outpatient (BNV) | payer BC, SELFPAY | PROVIDERS: PCP Internal Medicine; Visit Provider Radiology Diagnostic Radiology | DX: R05.3 Chronic cough (principal) | CPT/HCPCS: 71046 ==